=== PATIENT | male | born 1950 | race Caucasian/White ===

== ENCOUNTER 2018-05-17 11:43 | Outpatient (CLI) | payer OTHER | END 2018-05-17 23:59 | disposition home or self-care (01) | LOC: CFH 11:43 | PROVIDERS: ATTEND Nurse Practitioner | DX: M48.54XA Collapsed vertebra, not elsewhere classified, thoracic region, initial encounter for fracture (principal); M47.814 Spondylosis without myelopathy or radiculopathy, thoracic region; Q89.3 Situs inversus; I70.0 Atherosclerosis of aorta; J47.9 Bronchiectasis, uncomplicated; J98.4 Other disorders of lung; K76.89 Other specified diseases of liver; R91.8 Other nonspecific abnormal finding of lung field | CPT/HCPCS: 71250 ==